=== PATIENT | female | born 1990 | race Caucasian/White ===

== ENCOUNTER → 2016-05-14 | Outpatient (CLI) | payer BC, OTHER ==
[2016-05-14 13:03] LABS: ALT/SGPT 30 U/L (12-78); AST/SGOT 12 U/L (15-37); BLOOD UREA NITROGEN 11 mg/dl (7-18); BUN/CREATININE RATIO 14.7 (10-20); CALCIUM 8.8 mg/dl (8.5-10.1); CARBON DIOXIDE 27 mmol/L (21-32); CHLORIDE 108 mmol/L (98-107); CREATININE 0.78 mg/dl (0.60-1.20); GLUCOSE 87 mg/dl (70-99); POTASSIUM 4.1 mmol/L (3.5-5.1); SODIUM 141 mmol/L (136-145)
[2016-05-14 13:11] LABS: ALB/GLOB RATIO 1.1 (0.9-2); ALKALINE PHOSPHATASE 98 U/L (45-117); CHOLESTEROL 136 mg/dl (0-200); HDL CHOLESTEROL 45 mg/dl; LDL CHOLESTEROL CALCULATED 80 mg/dl; TRIGLYCERIDES 53 mg/dl (0-150); VERY LOW DENSITY LIPOPROT CALC 11 mg/dl
[2016-05-14 13:15] LABS: BASO % 0.4 %; BASO ABS # 0.03 K/uL (0-0.2); COMPLETE YES; EOS % 4.9 %; HEMATOCRIT 42.2 % (37-47); IG% 0.2 %; LYMPH % 29.5 %; LYMPH ABS # 2.46 K/uL (1.2-3.4); MEAN CELL VOLUME 86.3 fL (80-100); MEAN CORPUSCULAR HEMOGLOBIN 29.4 pg (25-34); MEAN CORPUSCULAR HGB CONC 34.1 g/dl (32-36); MEAN PLATELET VOLUME 10.5 fL (7.4-10.4); MONO % 6.1 %; NEUT % 58.9 %; PLATELET COUNT 294 K/uL (130-400); RED BLOOD COUNT 4.89 M/uL (4.2-5.4); WHITE BLOOD COUNT 8.35 K/uL (4.8-10.8)
== END | disposition home or self-care (01) ==
LOC: C.LABBFT 10:49
PROVIDERS: ATTEND Nurse Practitioner
DX: N91.2 Amenorrhea, unspecified (principal)

== ENCOUNTER → 2016-05-17 | Outpatient (CLI) | payer OTHER ==
--- NOTE | 2016-05-17 09:20 | DIAGNOSTIC IMAGING REPORT ---
THYROID ULTRASOUND HISTORY: E07.89 Thyroid fullness COMPARISON: None. FINDINGS: Right lobe: 5.0 x 1.8 x 1.2 cm. No nodules. Left lobe: 4.9 x 1.5 x 1.4 cm. No nodules. Isthmus: 6 mm in thickness. No nodules. IMPRESSION: Normal thyroid ultrasound. Electronically signed by: Xavi Hubbard M.D. 05/17/2016 9:18 AM Dictated Date/Time: 05/17/2016 9:12 AM
== END | disposition home or self-care (01) ==
LOC: C.ULTR 08:53
PROVIDERS: ATTEND Nurse Practitioner
DX: E07.89 Other specified disorders of thyroid (principal)

== ENCOUNTER 2024-03-23 07:24 | Inpatient (IN) ==
[2024-03-23] MEDS ORDERED: LIDOCAINE 1% LOCAL 20 ML VIAL INFIL PRN (07:31)
[2024-03-23] MEDS ORDERED: OXYTOCIN 30 UNITS/NSS 30 UNITS/500 ML BAG IV PRN (07:31)
[2024-03-23] MEDS: LACTATED RINGER'S 1,000 ML IV SCH (08:00)
[2024-03-23] MEDS: PENICILLIN GK 6 MU in SODIUM CHLORIDE 0.9% 250 ML IV STA (08:30)
[2024-03-23 08:34] LABS: Hematocrit (blood only) 33.9 % (37.0-47.0); Hemoglobin 11.5 g/dl (12.0-16.0); Mean Corpuscular Hemoglobin 28.5 pg (25.0-34.0); Mean Corpuscular Hgb Conc 33.9 g/dL (32.0-36.0); Mean Corpuscular Volume 83.9 fL (80.0-100.0); Mean Platelet Volume 9.8 fL (9.4-12.4); Platelet Count 268 K/uL (130-400); RDW Coefficient of Variation 12.9 % (11.5-14.5); Red Blood Count 4.04 M/uL (4.20-5.40); White Blood Count 8.26 K/ul (4.8-10.8)
[2024-03-23] MEDS: miSOPROStoL 25 MCG TAB PV ONE (10:03)
--- NOTE | 2024-03-23 10:13 | History & Physical Report ---
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 Date GA wks Lbr Lgth wt Sex Type del Anes Place Del Prov ? Comment 04/08/19 9 Aborted-Spontaneous 08/17/20 Aborted-Spontaneous 02/26/23 6 Aborted-Spontaneous Denies hx stis Allergies Allergy/AdvReac Type Severity Reaction Status Date / Time No Known Allergies Allergy Verified 03/22/24 10:49 Home Medications Medication Instructions Recorded Confirmed Type vit no.95-ferrous 1 tab PO DAILY 12/14/23 03/23/24 History fumarate 28 mg-folic acid 800 mcg tablet () Patient History Medical History (Updated 03/12/24 @ 17:38 by Alia Ballard MD) Complete miscarriage History of chicken pox Shingles Missed Atypical squamous cells of undetermined significance (ASCUS) on Papanicolaou smear of cervix History of dysmenorrhea Surgical History S/P tonsillectomy H/O oral surgery wisdom tooth extraction S/P adenoidectomy Family History Father Obesity Type 2 diabetes mellitus Pure hypercholesterolemia Diabetes Grandmother Type 2 diabetes mellitus Mother Hypertension Pure hypercholesterolemia Grandmother (Maternal) Diabetes Grandmother (Paternal) Diabetes Denies family history of Ovarian cancer Breast cancer Colorectal cancer Social History Smoking Status: Former smoker Tobacco Type: E-cigarettes / Vaping Second Hand Exposure: No; Do You Dip or Chew Tobacco: No; Hx Alcohol Use: No Hx Substance Use: No Preferred Language: Telugu Communication Ability: Effective 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 Beliefs That Will Affect Care: None marital status: Single marital status details: Suha Link (35) [phone] Current Living Situation: Significant Other Current Living Situation Comment: Pt lives with Juan, 1 dog, 3 cats, and 1 rabbit current occupational status: employed current occupation: [employer]- Other Information That Helps Us Care for You: No Feels Safe at Home: Yes Safety Concerns: Feels Safe At This Time Assistive Devices: None Physical Exam Genitourinary: OB Exam Abdomen: + vertex and + estimated weight (6-7) Manual OB Exam: + cervical dilation fingertip, + cervical effacement 20% and + station high OB Exam Monitor Tracing: + external FHT monitor used, + external uterine monitor used (none) and + category I (150/mod/+accel/-decel) Results & Data Vital Signs (Past 12 Hours) Vital Signs Temp Pulse Resp BP 03/23/24 08:13 98.1 F 82 16 128/75 03/23/24 08:08 98.1 F 82 16 128/75 Laboratory Results OB Labs: Blood Type A Positive 10/02/23 Antibody Screen NEGATIVE 10/02/23 Hgb 12.2 g/dl (12.0-16.0) 03/18/24 Hct 37.0 % (37.0-47.0) 03/18/24 MCV 86.4 fL (80.0-100.0) 03/18/24 Plt Count 287 K/uL (130-400) 03/18/24 VZV IgG Antibody >4000.00 INDEX 03/19/17 Rubella IgG Antibody Immune (Immune) 10/02/23 RPR Nonreactive (Nonreactive) 10/02/23 Treponema pallidum Ab Negative (Negative) 01/22/24 Hep Bs Antigen Neg (Neg) 09/29/19 Hep Bs Antigen NON-REACTIVE (NON-REACTIVE) 10/02/23 Hepatitis C Ab (EIA) NON-REACTIVE (NON-REACTIVE) 10/02/23 HIV 1&2 Ab/P24 Ag 4thGn Neg (Neg) 09/29/19 HIV (1&2) Ag & Ab Conf NON-REACTIVE (NON-REACTIVE) 10/02/23 Glucose 1 Hr 50 gm 127 mg/dl (70-130) 01/22/24 OB Optional Labs: Chlamydia trachomatis RNA Not Detected (NotDetected) 08/28/23 Neisseria gonorrhoeae RNA Not Detected (NotDetected) 08/28/23 Thyroid Stimulating Hormone (TSH) 1.390 uIu/ml (0.300-4.500) 08/04/20 GBS+ urine Diagnostic Findings 02/25 EFW 2302g 61%, post plac Coding Level of Care Code None Diagnoses Mild preeclampsia O14.00 Group beta Strep positive B95.1
[2024-03-23 10:19] LABS: Albumin Globulin Ratio 1.1 (0.9-2); Bilirubin,Total 0.4 mg/dl (0.2-1.0); Calcium 8.6 mg/dl (8.6-10.3); Creatinine Clr Calc Pharmacy 233.3 ml/min; Globulin 2.8 gm/dl (2.5-4.0); Potassium 4.2 mmol/L (3.5-5.1); Total Protein 5.8 gm/dl (6.0-8.3)
[2024-03-23] MEDS: PENICILLIN GK 3 MU in DEXTROSE 5% 100 ML IV PRN (12:30)
--- NOTE | 2024-03-23 14:08 | Labor Progress Brief Note ---
Date of Service March 23, 2024 Subjective Some cramping Assessment & Plan (1) Mild preeclampsia: (2) Group beta Strep positive: Plan 33 yo at 36 wga presents for IOL for pre-eclampsia w/o severe features VSS Fetus cat 1 Labor - 35cc tirado placed, will start pit PET - labs wnl, VSS GBS+, pcn ordered epidural prn Admission and Anticipated Discharge Date Admission Date: March 23, 2024 Physical Exam Genitourinary: Manual OB Exam: + cervical dilation 1 cm, + cervical effacement 20% and + station high OB Exam Monitor Tracing: + external FHT monitor used, + external uterine monitor used (irreg) and + category I (150/mod/+accel/-decel) Results & Data Vital Signs (Past 12 Hours) Vital Signs Temp Pulse Resp BP 03/23/24 13:25 86 110/79 03/23/24 11:59 81 135/85 03/23/24 10:16 76 128/65 03/23/24 08:13 98.1 F 82 16 128/75 03/23/24 08:08 98.1 F 82 16 128/75 Coding Level of Care Code None Diagnoses Mild preeclampsia O14.00 Group beta Strep positive B95.1
[2024-03-23] MEDS: OXYTOCIN 30 UNITS/NSS 30 UNITS/500 ML BAG IV PRN (14:18)
[2024-03-23] MEDS: BUTORPHANOL TARTRATE 2 MG/ML VIAL IV PRN (19:49)
[2024-03-23] MEDS ORDERED: diphenhydrAMINE 50 MG/ML VIAL IV PRN (21:46)
[2024-03-23] MEDS ORDERED: SODIUM CHLORIDE 0.9% PF INJ 10 ML VIAL EPI PRN (21:46)
[2024-03-23] MEDS ORDERED: LIDOCAINE 2% MPF LOCAL 5 ML VIAL EPI PRN (21:46)
[2024-03-23] MEDS ORDERED: ePHEDrine sulfate 50 MG/ML AMP IV PRN (21:46)
[2024-03-23] MEDS ORDERED: NALOXONE HCL 0.4 MG/1 ML VIAL/CARP IV PRN (21:46)
[2024-03-23] MEDS ORDERED: NALBUPHINE HCL INJ 10 MG/ML AMP IV PRN (21:46)
[2024-03-23] MEDS ORDERED: BUPIVACAINE 0.25% PF 30 ML VIAL EPI PRN (21:46)
[2024-03-23] MEDS ORDERED: NALOXONE HCL 1 MG in SODIUM CHLORIDE 0.9% 1,000 ML IV PRN (21:46)
[2024-03-23] MEDS ORDERED: ROPIVACAINE 0.5% PF 5 MG/ML 20 ML VIAL EPI PRN (21:46)
[2024-03-23] MEDS ORDERED: fentaNYL citrate PF 100 MCG/2 ML VIAL EPI PRN (21:46)
--- NOTE | 2024-03-23 21:46 | Anesthesiology Consultation ---
Date of Service March 23, 2024 Assessment & Plan (1) Encounter for pre-operative examination: Chart Review Chart Review: Patient NOT seen in Pre Admission Testing and Acceptable Risk for Labor Epidural Consults Requested none History Height/Weight Height: 5 ft 9 in Weight: 152.407 kg Allergies Allergy/AdvReac Type Severity Reaction Status Date / Time No Known Allergies Allergy Verified 03/22/24 10:49 Medications Home Medications Medication Instructions Recorded Confirmed Last Taken vit no.95-ferrous 1 tab PO DAILY 12/14/23 03/23/24 Unknown fumarate 28 mg-folic acid 800 mcg tablet () Active Medications Generic Name Dose Route Start Last Admin Trade Name Freq PRN Reason Stop Dose Admin Butorphanol Tartrate 1 mg 03/23/24 19:31 03/23/24 19:49 Butorphanol Tartrate 2 Mg/Ml Vial IV 1 mg Q1H PRN Administration Pain Oxytocin 30 units in 500 mls @ 20 mls/hr 03/23/24 07:31 03/23/24 20:10 Pitocin 30 Units/Nss IV 03/25/24 07:30 1.2 units/hr .Q24H PRN 20 mls/hr Labor Induction/Augmentation Titration Protocol 1.2 UNITS/HR Penicillin G Potassium 3 mu/ 106 mls @ 100 mls/hr 03/23/24 10:31 03/23/24 20:32 Dextrose IV 04/02/24 10:30 100 mls/hr Q4H PRN Administration GBS(+) Until Delivery Lactated Ringer's 1,000 mls @ 50 mls/hr 03/23/24 12:45 03/23/24 08:00 Lr IV 03/24/24 12:44 50 mls/hr .Q20H RONNIE Administration Past Medical History Medical History Complete miscarriage History of chicken pox Shingles Missed Atypical squamous cells of undetermined significance (ASCUS) on Papanicolaou smear of cervix History of dysmenorrhea Past Family History Family History Father Obesity Type 2 diabetes mellitus Pure hypercholesterolemia Diabetes Grandmother Type 2 diabetes mellitus Mother Hypertension Pure hypercholesterolemia Grandmother (Maternal) Diabetes Grandmother (Paternal) Diabetes Denies family history of Ovarian cancer Breast cancer Colorectal cancer Past Surgical History Surgical History S/P tonsillectomy H/O oral surgery wisdom tooth extraction S/P adenoidectomy Social History Smoking Status: Former smoker tobacco type: cigarettes Do You Dip or Chew Tobacco: No Hx Alcohol Use: No Hx Substance Use: No substance use type: does not use Physical Exam Vital Signs Last Vital Signs Temp 98.1 F 03/23/24 19:05 Pulse 73 03/23/24 21:43 Resp 20 03/23/24 19:05 BP 144/65 H 03/23/24 20:24 Pulse Ox 97 03/23/24 21:43 Testing Laboratory Results 03/23/24 07:44 03/23/24 07:44 Blood Type A Positive 03/23/24 07:44 Antibody Screen NEGATIVE 03/23/24 07:44
[2024-03-23] MEDS: LIDOCAINE 2%/EPINEPHRINE 1:200,000 20 ML PF EPI STA (22:08)
[2024-03-23] MEDS: BUPIVACAINE 0.25% PF 30 ML VIAL ONE (22:08)
[2024-03-23] MEDS: fentaNYL citrate PF 100 MCG/2 ML VIAL EPI STA (22:08)
[2024-03-23] MEDS: fentANYL 2 MCG/ML BUPIVacaine 0.125%-NSS 100ML BAG EPI PRN (22:09)
--- NOTE | 2024-03-23 22:29 | Labor Progress Brief Note ---
Date of Service March 23, 2024 Subjective s/p epidural, bulb out Assessment & Plan (1) Mild preeclampsia: (2) Group beta Strep positive: Plan 33 yo at 36 wga presents for IOL for pre-eclampsia w/o severe features VSS Fetus cat 1 Labor - now s/p arom, fse and iupc placed for more accurate monitoring. Pit at 22 PET - labs wnl, VSS GBS+, pcn ordered epidural in place Admission and Anticipated Discharge Date Admission Date: March 23, 2024 Physical Exam Genitourinary: Manual OB Exam: + cervical dilation (3-4), + cervical effacement 50%, + station -2 and + amniotic fluid (arom clear) OB Exam Monitor Tracing: + scalp electrode used, + intra-uterine pressure catheter used (placed, q3-4) and + category I (150/mod/+accel/-decel) Results & Data Vital Signs (Past 12 Hours) Vital Signs Temp Pulse Resp BP Pulse Ox 03/23/24 22:23 67 99 03/23/24 22:22 75 114/56 L 03/23/24 22:19 75 126/59 L 03/23/24 22:18 79 99 03/23/24 22:13 81 97 03/23/24 22:12 79 123/67 03/23/24 22:10 82 120/63 03/23/24 22:08 97 03/23/24 22:08 75 03/23/24 22:08 78 123/65 03/23/24 22:03 72 100 03/23/24 21:58 75 98 03/23/24 21:53 84 97 03/23/24 21:48 75 96 03/23/24 21:43 73 97 03/23/24 21:38 70 100 03/23/24 21:37 76 94 03/23/24 21:33 72 96 03/23/24 21:28 92 H 98 03/23/24 21:23 71 95 03/23/24 21:18 75 96 03/23/24 20:24 79 144/65 H 03/23/24 20:08 80 172/90 H 03/23/24 19:05 98.1 F 20 03/23/24 18:59 83 151/88 H 03/23/24 18:45 78 155/93 H 11/26/24 18:29 71 152/94 H 03/23/24 17:45 77 154/80 H 03/23/24 17:29 73 138/81 03/23/24 17:14 82 138/79 03/23/24 16:59 80 133/80 03/23/24 16:44 83 148/76 H 03/23/24 16:29 73 142/77 H 03/23/24 16:13 79 138/82 03/23/24 15:58 82 134/78 03/23/24 15:43 80 133/75 03/23/24 15:28 78 133/73 03/23/24 15:16 98.2 F 16 03/23/24 15:13 80 136/73 03/23/24 14:13 78 138/76 03/23/24 13:25 86 110/79 03/23/24 11:59 81 135/85 Coding Level of Care Code None Diagnoses Mild preeclampsia O14.00 Group beta Strep positive B95.1
[2024-03-23] MEDS ORDERED: ONDANSETRON INJ 2 MG/ML 2 ML VIAL IV PRN (22:31)
[2024-03-23] MEDS: ONDANSETRON INJ 2 MG/ML 2 ML VIAL ONE (22:33)
[2024-03-23] MEDS: fentANYL 2 MCG/ML BUPIVacaine 0.125%-NSS 100ML BAG ONE (22:53)
[2024-03-23] MEDS: LIDOCAINE 2%/EPINEPHRINE 1:200,000 20 ML PF ONE (22:53)
[2024-03-23] MEDS: BUPIVACAINE 0.25% PF 30 ML VIAL EPI STA (22:53)
[2024-03-23] MEDS: fentaNYL citrate PF 100 MCG/2 ML VIAL ONE (22:53)
[2024-03-23] MEDS: SODIUM CHLORIDE 0.9% PF INJ 10 ML VIAL ONE (22:54)
[2024-03-23] MEDS: SODIUM CHLORIDE 0.9% PF INJ 10 ML VIAL EPI STA (22:54)
--- NOTE | 2024-03-24 06:17 | Labor Progress Brief Note ---
Date of Service March 24, 2024 Subjective comfortable w/ epidural Assessment & Plan (1) Mild preeclampsia: (2) Group beta Strep positive: Plan 33 yo at 36 wga presents for IOL for pre-eclampsia w/o severe features VSS Fetus cat 1 Labor - pit at 28, was adequate earlier but starting to space. Slow progress but progress still noted. Continue induction PET - labs wnl, VSS GBS+, pcn ordered epidural in place Admission and Anticipated Discharge Date Admission Date: March 23, 2024 Physical Exam 2 Genitourinary: Manual OB Exam: + cervical dilation (4-5), + cervical effacement 50% and + station -2 OB Exam Monitor Tracing: + scalp electrode used, + intra-uterine pressure catheter used (q4, was adequate but spacing a little now) and + category I (140/mod/+accel/-decel) Results & Data Vital Signs (Past 12 Hours) Vital Signs Temp Pulse Resp BP Pulse Ox 03/24/24 06:13 83 94 03/24/24 06:12 88 131/71 03/24/24 06:11 84 88 L 03/24/24 06:08 79 97 03/24/24 06:03 76 93 03/24/24 05:58 78 94 03/24/24 05:55 74 116/64 91 03/24/24 05:53 77 94 03/24/24 05:48 76 95 03/24/24 05:43 75 94 03/24/24 05:40 73 111/62 91 03/24/24 05:38 77 94 03/24/24 05:33 87 96 03/24/24 05:28 79 97 03/24/24 05:26 75 119/66 03/24/24 05:23 79 94 03/24/24 05:18 78 94 03/24/24 05:13 79 94 03/24/24 05:11 75 113/64 03/24/24 05:08 81 94 03/24/24 05:03 79 94 03/24/24 04:58 77 94 03/24/24 04:56 78 104/60 03/24/24 04:53 79 94 03/24/24 04:48 81 94 03/24/24 04:43 77 94 03/24/24 04:40 98.1 F 78 118/61 03/24/24 04:38 85 93 03/24/24 04:35 88 91 03/24/24 04:33 79 93 03/24/24 04:28 75 94 03/24/24 04:23 80 93 03/24/24 04:18 77 93 03/24/24 04:13 78 92 03/24/24 04:10 74 109/59 L 03/24/24 04:08 78 93 03/24/24 04:03 80 92 03/24/24 03:58 75 93 03/24/24 03:55 73 108/56 L 03/24/24 03:53 83 93 03/24/24 03:48 78 93 03/24/24 03:43 76 93 03/24/24 03:41 77 106/60 03/24/24 03:38 80 94 03/24/24 03:33 80 93 03/24/24 03:28 78 94 03/24/24 03:27 73 110/53 L 03/24/24 03:23 76 95 03/24/24 03:18 84 96 03/24/24 03:17 96 H 91 03/24/24 03:13 84 94 03/24/24 03:11 96 H 123/69 03/24/24 03:08 87 95 03/24/24 03:03 96 H 96 03/24/24 02:58 92 H 96 03/24/24 02:55 90 124/64 03/24/24 02:53 82 95 03/24/24 02:48 81 94 03/24/24 02:43 76 94 03/24/24 02:41 85 134/75 03/24/24 02:40 98.2 F 03/24/24 02:38 107 H 97 03/24/24 02:33 87 96 03/24/24 02:28 83 95 03/24/24 02:26 83 127/57 L 03/24/24 02:23 80 95 03/24/24 02:18 87 95 03/24/24 02:13 88 95 03/24/24 02:10 92 H 133/60 03/24/24 02:08 83 95 03/24/24 02:03 82 95 03/24/24 01:58 84 95 03/24/24 01:57 82 129/58 L 03/24/24 01:53 85 96 03/24/24 01:48 85 96 03/24/24 01:43 82 96 03/24/24 01:40 77 132/69 03/24/24 01:38 79 94 03/24/24 01:33 81 93 03/24/24 01:28 73 93 03/24/24 01:25 85 112/66 03/24/24 01:23 79 93 03/24/24 01:18 86 94 03/24/24 01:13 83 94 03/24/24 01:11 78 138/76 03/24/24 01:08 81 93 03/24/24 01:03 81 93 03/24/24 00:58 77 93 03/24/24 00:55 76 139/74 03/24/24 00:53 85 93 03/24/24 00:48 84 94 03/24/24 00:43 77 93 03/24/24 00:41 77 137/76 03/24/24 00:38 81 94 03/24/24 00:33 78 94 03/24/24 00:30 98.1 F 03/24/24 00:28 84 95 03/24/24 00:25 78 124/61 94 03/24/24 00:23 79 93 03/24/24 00:20 80 93 03/24/24 00:18 80 94 03/24/24 00:13 79 94 03/24/24 00:10 76 122/58 L 03/24/24 00:08 93 03/24/24 00:08 80 03/24/24 00:08 81 94 03/24/24 00:03 94 03/24/24 00:03 83 03/24/24 00:03 84 94 03/23/24 23:58 79 94 03/23/24 23:57 81 94 03/23/24 23:55 76 123/57 L 03/23/24 23:53 82 93 03/23/24 23:52 82 94 03/23/24 23:48 79 94 03/23/24 23:47 83 94 03/23/24 23:43 85 93 03/23/24 23:41 79 123/61 93 03/23/24 23:38 84 93 03/23/24 23:33 82 93 03/23/24 23:31 80 93 03/23/24 23:28 79 95 03/23/24 23:26 77 123/63 03/23/24 23:25 80 93 03/23/24 23:23 78 95 03/23/24 23:19 83 93 03/23/24 23:18 90 96 03/23/24 23:14 79 94 03/23/24 23:13 81 95 03/23/24 23:11 75 122/68 03/23/24 23:09 80 94 03/23/24 23:08 82 94 03/23/24 23:03 77 96 03/23/24 23:00 18 03/23/24 23:00 98.4 F 18 03/23/24 22:58 74 97 03/23/24 22:57 94 03/23/24 22:57 77 03/23/24 22:57 75 120/65 03/23/24 22:53 86 97 03/23/24 22:48 76 96 03/23/24 22:43 77 98 03/23/24 22:39 75 116/61 03/23/24 22:38 80 97 03/23/24 22:33 79 156/124 H 97 03/23/24 22:28 77 94 03/23/24 22:23 67 99 03/23/24 22:22 75 114/56 L 03/23/24 22:20 20 03/23/24 22:20 20 03/23/24 22:19 75 126/59 L 03/23/24 22:18 79 99 03/23/24 22:15 18 03/23/24 22:15 18 03/23/24 22:13 81 97 03/23/24 22:12 79 123/67 03/23/24 22:10 82 18 120/63 03/23/24 22:08 97 03/23/24 22:08 75 03/23/24 22:08 78 123/65 03/23/24 22:03 72 100 03/23/24 21:58 75 98 03/23/24 21:53 84 97 03/23/24 21:48 75 96 03/23/24 21:43 73 97 03/23/24 21:38 70 100 03/23/24 21:37 76 94 03/23/24 21:33 72 96 03/23/24 21:28 92 H 98 03/23/24 21:23 71 95 03/23/24 21:18 75 96 03/23/24 20:24 79 144/65 H 03/23/24 20:08 80 172/90 H 03/23/24 19:05 98.1 F 20 03/23/24 18:59 83 151/88 H 03/23/24 18:45 78 155/93 H 03/23/24 18:29 71 152/94 H Coding Level of Care Code None Diagnoses Mild preeclampsia O14.00 Group beta Strep positive B95.1
[2024-03-24] MEDS: ePHEDrine sulfate 50 MG/ML AMP ONE (08:18)
--- NOTE | 2024-03-24 09:31 | Labor Progress Brief Note ---
Date of Service March 24, 2024 Subjective Patient comfortable . Has been at 30mU of pit for three hours. ARom for 10 hours. Assessment & Plan (1) Mild preeclampsia: (2) Group beta Strep positive: (3) Obesity affecting , antepartum: Plan Not making any progress, contraction pattern worsening as the pitocin is increasing. Concerned. Fetus category one. Discussed plan of d/c pit for 30 min and then restarting at half again and see if can get better contractions. Could choose to proceed with c/s. Not ready to give up as have other options but expressed my concern of minimal progress. r/b/se of both discussed. Admission and Anticipated Discharge Date Admission Date: March 23, 2024 Physical Exam Physical Exam: cx--3-4/75/-2 toco--q2-4min, pit at 4, contractions are actually worsening in intensity efm--130s with mod variability, accels to 160s, no decels Results & Data Vital Signs (Past 12 Hours) Vital Signs Temp Pulse Resp BP Pulse Ox 03/24/24 09:23 82 98 03/24/24 09:18 74 96 03/24/24 09:13 76 94 03/24/24 09:11 73 125/67 03/24/24 09:08 74 94 03/24/24 09:03 75 93 03/24/24 08:58 76 94 03/24/24 08:55 79 130/76 03/24/24 08:53 77 93 03/24/24 08:48 75 94 03/24/24 08:43 75 94 03/24/24 08:41 73 124/77 03/24/24 08:38 73 94 03/24/24 08:33 85 96 03/24/24 08:28 77 94 03/24/24 08:25 74 116/69 03/24/24 08:23 83 95 03/24/24 08:18 76 95 03/24/24 08:13 82 96 03/24/24 08:10 74 125/75 03/24/24 08:08 83 97 03/24/24 08:03 79 96 03/24/24 08:01 20 03/24/24 08:01 20 03/24/24 07:58 91 H 96 03/24/24 07:56 73 123/62 03/24/24 07:53 75 94 03/24/24 07:48 88 95 03/24/24 07:43 78 96 03/24/24 07:40 76 124/59 L 03/24/24 07:38 81 96 03/24/24 07:33 86 96 03/24/24 07:28 76 94 03/24/24 07:26 80 127/58 L 91 03/24/24 07:23 86 94 03/24/24 07:18 74 95 03/24/24 07:14 36.7 C 18 03/24/24 07:13 80 96 03/24/24 07:12 74 119/69 03/24/24 07:08 75 95 03/24/24 07:03 77 94 03/24/24 06:58 77 94 03/24/24 06:55 78 126/70 03/24/24 06:53 89 95 03/24/24 06:48 79 93 03/24/24 06:43 87 96 03/24/24 06:40 86 124/73 03/24/24 06:38 75 94 03/24/24 06:33 75 96 03/24/24 06:28 76 95 03/24/24 06:25 80 03/24/24 06:25 73 115/72 88 L 03/24/24 06:23 87 96 03/24/24 06:18 83 96 03/24/24 06:13 83 94 03/24/24 06:12 88 131/71 03/24/24 06:11 84 88 L 03/24/24 06:08 79 97 03/24/24 06:03 76 93 03/24/24 05:58 78 94 03/24/24 05:55 74 116/64 91 03/24/24 05:53 77 94 03/24/24 05:48 76 95 03/24/24 05:43 75 94 03/24/24 05:40 73 111/62 91 03/24/24 05:38 77 94 03/24/24 05:33 87 96 03/24/24 05:28 79 97 03/24/24 05:26 75 119/66 03/24/24 05:23 79 94 03/24/24 05:18 78 94 03/24/24 05:13 79 94 03/24/24 05:11 75 113/64 03/24/24 05:08 81 94 03/24/24 05:03 79 94 03/24/24 04:58 77 94 03/24/24 04:56 78 104/60 03/24/24 04:53 79 94 03/24/24 04:48 81 94 03/24/24 04:43 77 94 03/24/24 04:40 36.7 C 78 118/61 03/24/24 04:38 85 93 03/24/24 04:35 88 91 03/24/24 04:33 79 93 03/24/24 04:28 75 94 03/24/24 04:23 80 93 03/24/24 04:18 77 93 03/24/24 04:13 78 92 03/24/24 04:10 74 109/59 L 03/24/24 04:08 78 93 03/24/24 04:03 80 92 03/24/24 03:58 75 93 03/24/24 03:55 73 108/56 L 03/24/24 03:53 83 93 03/24/24 03:48 78 93 03/24/24 03:43 76 93 03/24/24 03:41 77 106/60 03/24/24 03:38 80 94 03/24/24 03:33 80 93 03/24/24 03:28 78 94 03/24/24 03:27 73 110/53 L 03/24/24 03:23 76 95 03/24/24 03:18 84 96 03/24/24 03:17 96 H 91 03/24/24 03:13 84 94 03/24/24 03:11 96 H 123/69 03/24/24 03:08 87 95 03/24/24 03:03 96 H 96 03/24/24 02:58 92 H 96 03/24/24 02:55 90 124/64 03/24/24 02:53 82 95 03/24/24 02:48 81 94 03/24/24 02:43 76 94 03/24/24 02:41 85 134/75 03/24/24 02:40 36.8 C 03/24/24 02:38 107 H 97 03/24/24 02:33 87 96 03/24/24 02:28 83 95 03/24/24 02:26 83 127/57 L 03/24/24 02:23 80 95 03/24/24 02:18 87 95 03/24/24 02:13 88 95 03/24/24 02:10 92 H 133/60 03/24/24 02:08 83 95 03/24/24 02:03 82 95 03/24/24 01:58 84 95 03/24/24 01:57 82 129/58 L 03/24/24 01:53 85 96 03/24/24 01:48 85 96 03/24/24 01:43 82 96 03/24/24 01:40 77 132/69 03/24/24 01:38 79 94 03/24/24 01:33 81 93 03/24/24 01:28 73 93 03/24/24 01:25 85 112/66 03/24/24 01:23 79 93 03/24/24 01:18 86 94 03/24/24 01:13 83 94 03/24/24 01:11 78 138/76 03/24/24 01:08 81 93 03/24/24 01:03 81 93 03/24/24 00:58 77 93 03/24/24 00:55 76 139/74 03/24/24 00:53 85 93 03/24/24 00:48 84 94 03/24/24 00:43 77 93 03/24/24 00:41 77 137/76 03/24/24 00:38 81 94 03/24/24 00:33 78 94 03/24/24 00:30 36.7 C 03/24/24 00:28 84 95 03/24/24 00:25 78 124/61 94 03/24/24 00:23 79 93 03/24/24 00:20 80 93 03/24/24 00:18 80 94 03/24/24 00:13 79 94 03/24/24 00:10 76 122/58 L 03/24/24 00:08 93 03/24/24 00:08 80 03/24/24 00:08 81 94 03/24/24 00:03 94 03/24/24 00:03 83 03/24/24 00:03 84 94 03/23/24 23:58 79 94 03/23/24 23:57 81 94 03/23/24 23:55 76 123/57 L 03/23/24 23:53 82 93 03/23/24 23:52 82 94 03/23/24 23:48 79 94 03/23/24 23:47 83 94 03/23/24 23:43 85 93 03/23/24 23:41 79 123/61 93 03/23/24 23:38 84 93 03/23/24 23:33 82 93 03/23/24 23:31 80 93 03/23/24 23:28 79 95 03/23/24 23:26 77 123/63 03/23/24 23:25 80 93 03/23/24 23:23 78 95 03/23/24 23:19 83 93 03/23/24 23:18 90 96 03/23/24 23:14 79 94 03/23/24 23:13 81 95 03/23/24 23:11 75 122/68 03/23/24 23:09 80 94 03/23/24 23:08 82 94 03/23/24 23:03 77 96 03/23/24 23:00 18 03/23/24 23:00 36.9 C 18 03/23/24 22:58 74 97 03/23/24 22:57 94 03/23/24 22:57 77 03/23/24 22:57 75 120/65 03/23/24 22:53 86 97 03/23/24 22:48 76 96 03/23/24 22:43 77 98 03/23/24 22:39 75 116/61 03/23/24 22:38 80 97 03/23/24 22:33 79 156/124 H 97 03/23/24 22:28 77 94 03/23/24 22:23 67 99 03/23/24 22:22 75 114/56 L 03/23/24 22:20 20 03/23/24 22:20 20 03/23/24 22:19 75 126/59 L 03/23/24 22:18 79 99 03/23/24 22:15 18 03/23/24 22:15 18 03/23/24 22:13 81 97 03/23/24 22:12 79 123/67 03/23/24 22:10 82 18 120/63 03/23/24 22:08 97 03/23/24 22:08 75 03/23/24 22:08 78 123/65 03/23/24 22:03 72 100 03/23/24 21:58 75 98 03/23/24 21:53 84 97 03/23/24 21:48 75 96 03/23/24 21:43 73 97 03/23/24 21:38 70 100 03/23/24 21:37 76 94 03/23/24 21:33 72 96 Coding Level of Care Code None Diagnoses Mild preeclampsia O14.00 Group beta Strep positive B95.1 Obesity affecting , antepartum O99.210
--- NOTE | 2024-03-24 10:07 | Communication Note ---
Date of Service: March 24, 2024 After continued discussion, patient no longer desires to proceed with labor and desires to proceed with c/s. The risks of surgery were discussed with the patient including the risks of anesthesia, bleeding requiring transfusion, infection, poor wound healing, urinary retention, damage to surrounding structures including bowels, bladder, vessels, nerves and ureters that may require further surgery, hospitalization or intervention. The other risks of any surgery were discussed including heart attack, blood clots, stroke or . Discussed risk of injury. Consent reviewed and signed.
[2024-03-24] MEDS ORDERED: LACTATED RINGER'S 1,000 ML IV SCH ×3 (10:15→12:00)
[2024-03-24] MEDS ORDERED: ONDANSETRON INJ 2 MG/ML 2 ML VIAL ONE (10:25)
[2024-03-24] MEDS ORDERED: DEXAMETHASONE SOD INJ 4 MG/ML VIAL ONE (10:25)
[2024-03-24] MEDS ORDERED: PHENYLEPHRINE HCL 25 MG/250 ML NSS IV ONE (10:25)
[2024-03-24] MEDS ORDERED: LIDOCAINE 2%/EPINEPHRINE 1:200,000 20 ML PF ONE (10:25)
[2024-03-24] MEDS ORDERED: ePHEDrine sulfate 50 MG/5 ML SYR ONE (10:25)
[2024-03-24] MEDS ORDERED: MoRPHine SULFATE PF 1 MG/ML 10 ML AMP/VIAL ONE (10:25)
[2024-03-24] MEDS: ceFAZolin 3000MG 3,000 MG/72.5 ML BAG IV SCH (10:30)
[2024-03-24] MEDS: AZITHROMYCIN 500 MG in SODIUM CHLORIDE 0.9% 250 ML IV SCH (10:43)
[2024-03-24] MEDS: CITRIC ACID/SODIUM CITRATE 15 ML UDC PO SCH (10:44)
[2024-03-24] MEDS ORDERED: CARBOPROST TROMETHAMINE 250 MCG/ML AMPUL ONE (11:15)
[2024-03-24] MEDS ORDERED: MIDAZOLAM HCL 1 MG/ML 2ML VIAL ONE (11:26)
[2024-03-24] MEDS ORDERED: ePHEDrine sulfate 50 MG/ML AMP IV PRN (11:27)
[2024-03-24] MEDS ORDERED: NALOXONE HCL 1 MG in SODIUM CHLORIDE 0.9% 1,000 ML IV PRN (11:27)
[2024-03-24] MEDS ORDERED: HYDROmorphone INJ 0.5 MG/0.5 ML SYR IV PRN (11:27)
[2024-03-24] MEDS ORDERED: diphenhydrAMINE 50 MG/ML VIAL IV PRN (11:27)
[2024-03-24] MEDS ORDERED: oxyCODONE HCL IR 5 MG TAB (IMMEDIATE RELEASE) PO PRN (11:27)
[2024-03-24] MEDS ORDERED: NALOXONE HCL 0.08 MG in SYRINGE 1.8 ML IV PRN (11:27)
[2024-03-24] MEDS ORDERED: PROMETHAZINE 6.25 MG/50.25 ML BAG IV PRN (11:27)
[2024-03-24] MEDS ORDERED: NALOXONE HCL 0.4 MG/1 ML VIAL/CARP IV PRN (11:27)
[2024-03-24] MEDS ORDERED: MoRPHine SULFATE PF 1 MG/ML 10 ML AMP/VIAL EPI ONE (11:27)
[2024-03-24] MEDS ORDERED: ONDANSETRON INJ 2 MG/ML 2 ML VIAL IV PRN ×2 (11:27→11:49)
[2024-03-24] MEDS ORDERED: NALBUPHINE HCL INJ 10 MG/ML AMP IV PRN (11:27)
[2024-03-24] MEDS ORDERED: NO NARCOTICS OR SEDATIVES SCH (11:30)
[2024-03-24] MEDS ORDERED: DC INTRASPINAL MORPHINE SCH (11:30)
[2024-03-24] MEDS ORDERED: SENNA 8.6 MG TAB PO PRN (11:49)
[2024-03-24] MEDS ORDERED: HYDROCORTISONE ACETATE 25 MG SUPP PR PRN (11:49)
[2024-03-24] MEDS ORDERED: CALCIUM CARBONATE 500 MG CHEWABLE TAB PO PRN (11:49)
[2024-03-24] MEDS ORDERED: MAGNESIUM HYDROXIDE SUSP 30 ML UDC PO PRN (11:49)
[2024-03-24] MEDS ORDERED: BENZOCAINE 20% SPRY 85 APPLN/85 GM CAN EXT PRN (11:49)
[2024-03-24] MEDS: OXYTOCIN 20 UNITS/LR 1,002 ML IV SCH (11:55)
--- NOTE | 2024-03-24 12:03 | Operative Report ---
PG Post Operative Report Pre & Post Diagnosis Operation Date: 03/24/24 11:00 Pre-Op Diagnosis: IUP at 37.1 weeks, PIH with severe features, failure to induce. Post-Op Diagnosis: IUP at 37.1 weeks, PIH with severe features, failure to induce. I identified the patient and participated in the time-out.: Yes Procedure Operation Date: 03/24/24 11:00 Actual Procedures p primary low transverse Section in LD. Delivery of Live male child at 1111. (Bilateral) - Courtney Parr MD, FACOG Surgeon Courtney Parr MD, FACOG Advertising Assistant Manager Mayra Villanueva MD, Marilu Figueroa, PGY 1 Estimated Blood Loss 677 (QBL) Findings Consistent with Post-Op Diagnosis viable male infant , transverse postion, apgars 7/9 normal appearing uterus tubes and ovaries Fluids ivf--900cc uop--550cc from insertion of the tirado Specimens none Drains tirado Anesthesia Type Spinal Complications none Disposition Accompanied Patient To Recovery: Yes Disposition: L&D Indications [id number] with iol for pet without severe features. Unfavorable cervix. Got cytotec then tirado. Had arom with iupc/fse placed. WAs ruptured for 12 hours and had max pitocin of 30 and made no change. discussed other options for continued labor vs. moving forward with c/s and patient chooses the latter. Description of Procedure The patient was taken to the operating room where she was identified verbally and by bracelet. She was placed in the supine position with a leftward tilt. A Tirado catheter had been placed sterilely. The epidural was dosed by epidural. the patient was prepped and draped in a normal standard fashion. the anesthetic was tested and found to be adequate. A time-out was held, identifying correct patient, procedure, positioning and preoperative antibiotics. There were no concerns. A Pfannenstiel skin incision was made with a knife and taken down to the underlying layer of fascia with the knife and Bovie electrocautery. Bleeding was attended to with the Bovie. The fascia was incised in the midline with the knife and taken out laterally with scissors. The superior edge of the fascial incision was grasped, elevated and the underlying layer of rectus muscle was taken off bluntly and with scissors. In a similar fashion, the inferior edge of the fascial incision was grasped, elevated and the underlying layer of rectus muscle was taken off bluntly and with scissors. The muscles were bluntly in the midline. The peritoneum was entered bluntly. The incision was then stretched. The bladder blade was placed. The vesicouterine peritoneum was identified, entered with scissors and taken out laterally with scissors. The bladder flap was created digitally A hysterotomy incision was scored with a knife and the incision was stretched superiorly and inferiorly with the tram operator's fingers. The operators hand was placed into the incision and attempts to deliver the head with fundal pressure were unsuccessful. A vacuum was called for and placed. the suction initiated to the green zone. the head was then delivered with fundal pressure. The vacuum was immedately released. Loose nuchal cord. The nose and mouth were bulb suctioned. the rest of the was then delivered without difficulty. The nose and mouth were again bulb suctioned. The cord was clamped and cut and the was then handed off to the awaiting informatics coordinator for drying and attention. Cord blood and segment were obtained. The placenta was Manually extracted. The uterus was exteriorized and cleared of all clot and debris with moistened laparotomy sponges. The hysterotomy incision was repaired in two layers, the first in a running locked layer, the second in an imbricating layer. Hemostasis required 3 addtional tissues. Posterior cul-de-sac was irrigated and cleared of all clot and debris. The hysterotomy incision was again inspected and found to be hemostatic. the uterus was reinteriorized. Hysterotomy incision was again inspected and found to be hemostatic. The fascia was then reapproximated with 0 Vicryl starting at the edges and meeting in the midline. The subcuticular tissues were copiously irrigated and bleeding was attended to with cautery. the Subcuticular tissue was reapproximated with 2-0 plain gut. The skin was then closed with 4-0 Vicryl in a subcuticular fashion. A JAVON dressing was then placed. All sponge, lap and needle counts correct x 2. The patient taken to the recovery room in stable condition. I attest to the content of the Intraoperative Record and any orders documented therein. Any exceptions are noted below.
[2024-03-24] MEDS: CARBOPROST TROMETHAMINE 250 MCG/ML AMPUL IM ONE (12:07)
--- NOTE | 2024-03-24 12:09 | Anesthesiology Progress Note ---
Date of Service March 24, 2024 Anesthesia Post Procedure Vital Signs Vital Signs: Temp Pulse Resp BP Pulse Ox 03/24/24 12:06 100 H 136/99 03/24/24 12:03 84 96 03/24/24 11:58 97 H 96 03/24/24 11:56 93 03/24/24 11:56 89 03/24/24 11:56 88 130/79 03/24/24 11:53 89 99 03/24/24 10:40 80 121/75 03/24/24 10:38 81 95 03/24/24 10:33 88 96 03/24/24 10:28 87 97 03/24/24 10:26 83 148/76 H 03/24/24 10:23 85 96 03/24/24 10:18 81 97 03/24/24 10:13 90 97 03/24/24 10:12 82 126/72 03/24/24 10:08 92 H 97 03/24/24 10:03 87 97 03/24/24 09:58 79 98 03/24/24 09:55 93 H 138/85 03/24/24 09:53 85 98 03/24/24 09:48 91 H 97 03/24/24 09:43 83 96 03/24/24 09:40 83 139/83 03/24/24 09:38 83 96 03/24/24 09:33 84 97 03/24/24 09:29 37.0 C 03/24/24 09:28 80 97 03/24/24 09:23 82 98 03/24/24 09:18 74 96 03/24/24 09:15 18 03/24/24 09:15 18 03/24/24 09:13 76 94 03/24/24 09:11 73 125/67 03/24/24 09:08 74 94 03/24/24 09:03 75 93 03/24/24 08:58 76 94 03/24/24 08:55 79 130/76 03/24/24 08:53 77 93 03/24/24 08:48 75 94 03/24/24 08:43 75 94 03/24/24 08:41 73 124/77 03/24/24 08:38 73 94 03/24/24 08:33 85 96 03/24/24 08:28 77 94 03/24/24 08:25 74 116/69 11/27/24 08:23 83 95 03/24/24 08:18 76 95 03/24/24 08:13 82 96 03/24/24 08:10 74 125/75 03/24/24 08:08 83 97 03/24/24 08:03 79 96 03/24/24 08:01 20 03/24/24 08:01 20 03/24/24 07:58 91 H 96 03/24/24 07:56 73 123/62 03/24/24 07:53 75 94 03/24/24 07:48 88 95 03/24/24 07:43 78 96 03/24/24 07:40 76 124/59 L 03/24/24 07:38 81 96 03/24/24 07:33 86 96 03/24/24 07:28 76 94 03/24/24 07:26 80 127/58 L 91 03/24/24 07:23 86 94 03/24/24 07:18 74 95 03/24/24 07:14 36.7 C 18 03/24/24 07:13 80 96 03/24/24 07:12 74 119/69 03/24/24 07:08 75 95 03/24/24 07:03 77 94 03/24/24 06:58 77 94 03/24/24 06:55 78 126/70 03/24/24 06:53 89 95 03/24/24 06:48 79 93 03/24/24 06:43 87 96 03/24/24 06:40 86 124/73 03/24/24 06:38 75 94 03/24/24 06:33 75 96 03/24/24 06:28 76 95 03/24/24 06:25 80 03/24/24 06:25 73 115/72 88 L 03/24/24 06:23 87 96 03/24/24 06:18 83 96 03/24/24 06:13 83 94 03/24/24 06:12 88 131/71 03/24/24 06:11 84 88 L 03/24/24 06:08 79 97 03/24/24 06:03 76 93 03/24/24 05:58 78 94 03/24/24 05:55 74 116/64 91 03/24/24 05:53 77 94 03/24/24 05:48 76 95 03/24/24 05:43 75 94 03/24/24 05:40 73 111/62 91 03/24/24 05:38 77 94 03/24/24 05:33 87 96 03/24/24 05:28 79 97 03/24/24 05:26 75 119/66 03/24/24 05:23 79 94 03/24/24 05:18 78 94 03/24/24 05:13 79 94 03/24/24 05:11 75 113/64 03/24/24 05:08 81 94 03/24/24 05:03 79 94 03/24/24 04:58 77 94 03/24/24 04:56 78 104/60 03/24/24 04:53 79 94 03/24/24 04:48 81 94 03/24/24 04:43 77 94 03/24/24 04:40 36.7 C 78 118/61 03/24/24 04:38 85 93 03/24/24 04:35 88 91 03/24/24 04:33 79 93 03/24/24 04:28 75 94 03/24/24 04:23 80 93 03/24/24 04:18 77 93 03/24/24 04:13 78 92 03/24/24 04:10 74 109/59 L 03/24/24 04:08 78 93 03/24/24 04:03 80 92 03/24/24 03:58 75 93 03/24/24 03:55 73 108/56 L 03/24/24 03:53 83 93 03/24/24 03:48 78 93 03/24/24 03:43 76 93 03/24/24 03:41 77 106/60 03/24/24 03:38 80 94 03/24/24 03:33 80 93 03/24/24 03:28 78 94 03/24/24 03:27 73 110/53 L 03/24/24 03:23 76 95 03/24/24 03:18 84 96 03/24/24 03:17 96 H 91 03/24/24 03:13 84 94 03/24/24 03:11 96 H 123/69 03/24/24 03:08 87 95 03/24/24 03:03 96 H 96 03/24/24 02:58 92 H 96 03/24/24 02:55 90 124/64 03/24/24 02:53 82 95 03/24/24 02:48 81 94 03/24/24 02:43 76 94 03/24/24 02:41 85 134/75 03/24/24 02:40 36.8 C 03/24/24 02:38 107 H 97 03/24/24 02:33 87 96 03/24/24 02:28 83 95 03/24/24 02:26 83 127/57 L 03/24/24 02:23 80 95 03/24/24 02:18 87 95 03/24/24 02:13 88 95 03/24/24 02:10 92 H 133/60 03/24/24 02:08 83 95 03/24/24 02:03 82 95 03/24/24 01:58 84 95 03/24/24 01:57 82 129/58 L 03/24/24 01:53 85 96 03/24/24 01:48 85 96 03/24/24 01:43 82 96 03/24/24 01:40 77 132/69 03/24/24 01:38 79 94 03/24/24 01:33 81 93 03/24/24 01:28 73 93 03/24/24 01:25 85 112/66 03/24/24 01:23 79 93 03/24/24 01:18 86 94 03/24/24 01:13 83 94 03/24/24 01:11 78 138/76 03/24/24 01:08 81 93 03/24/24 01:03 81 93 03/24/24 00:58 77 93 03/24/24 00:55 76 139/74 03/24/24 00:53 85 93 03/24/24 00:48 84 94 03/24/24 00:43 77 93 03/24/24 00:41 77 137/76 03/24/24 00:38 81 94 03/24/24 00:33 78 94 03/24/24 00:30 36.7 C 03/24/24 00:28 84 95 03/24/24 00:25 78 124/61 94 03/24/24 00:23 79 93 03/24/24 00:20 80 93 03/24/24 00:18 80 94 03/24/24 00:13 79 94 03/24/24 00:10 76 122/58 L 03/24/24 00:08 93 03/24/24 00:08 80 03/24/24 00:08 81 94 03/24/24 00:03 94 03/24/24 00:03 83 03/24/24 00:03 84 94 03/23/24 23:58 79 94 03/23/24 23:57 81 94 03/23/24 23:55 76 123/57 L 03/23/24 23:53 82 93 03/23/24 23:52 82 94 03/23/24 23:48 79 94 03/23/24 23:47 83 94 03/23/24 23:43 85 93 03/23/24 23:41 79 123/61 93 03/23/24 23:38 84 93 03/23/24 23:33 82 93 03/23/24 23:31 80 93 03/23/24 23:28 79 95 03/23/24 23:26 77 123/63 03/23/24 23:25 80 93 03/23/24 23:23 78 95 03/23/24 23:19 83 93 03/23/24 23:18 90 96 03/23/24 23:14 79 94 03/23/24 23:13 81 95 03/23/24 23:11 75 122/68 03/23/24 23:09 80 94 03/23/24 23:08 82 94 03/23/24 23:03 77 96 03/23/24 23:00 18 03/23/24 23:00 36.9 C 18 03/23/24 22:58 74 97 03/23/24 22:57 94 03/23/24 22:57 77 03/23/24 22:57 75 120/65 03/23/24 22:53 86 97 03/23/24 22:48 76 96 03/23/24 22:43 77 98 03/23/24 22:39 75 116/61 03/23/24 22:38 80 97 03/23/24 22:33 79 156/124 H 97 03/23/24 22:28 77 94 03/23/24 22:23 67 99 03/23/24 22:22 75 114/56 L 03/23/24 22:20 20 03/23/24 22:20 20 03/23/24 22:19 75 126/59 L 03/23/24 22:18 79 99 03/23/24 22:15 18 03/23/24 22:15 18 03/23/24 22:13 81 97 03/23/24 22:12 79 123/67 03/23/24 22:10 82 18 120/63 03/23/24 22:08 97 03/23/24 22:08 75 03/23/24 22:08 78 123/65 03/23/24 22:03 72 100 03/23/24 21:58 75 98 03/23/24 21:53 84 97 03/23/24 21:48 75 96 03/23/24 21:43 73 97 03/23/24 21:38 70 100 03/23/24 21:37 76 94 03/23/24 21:33 72 96 03/23/24 21:28 92 H 98 03/23/24 21:23 71 95 03/23/24 21:18 75 96 03/23/24 20:24 79 144/65 H 03/23/24 20:08 80 172/90 H 03/23/24 19:05 36.7 C 20 03/23/24 18:59 83 151/88 H 03/23/24 18:45 78 155/93 H 03/23/24 18:29 71 152/94 H 03/23/24 17:45 77 154/80 H 03/23/24 17:29 73 138/81 03/23/24 17:14 82 138/79 03/23/24 16:59 80 133/80 03/23/24 16:44 83 148/76 H 03/23/24 16:29 73 142/77 H 03/23/24 16:13 79 138/82 03/23/24 15:58 82 134/78 03/23/24 15:43 80 133/75 03/23/24 15:28 78 133/73 03/23/24 15:16 36.8 C 16 03/23/24 15:13 80 136/73 03/23/24 14:13 78 138/76 03/23/24 13:25 86 110/79 Pain Intensity Lower Abdomen: Pain Intensity: 2 Transfer of Care Handoff Completed per policy Notes Mental Status: alert / awake / arousable Patient Amnestic to Procedure: No Nausea / Vomiting: adequately controlled Pain: adequately controlled Airway Patency, RR, SpO2: stable & adequate BP & HR: stable & adequate Hydration State: stable & adequate Neuraxial Anesthesia: was administered and sensory block is resolving Anesthetic Complications: no major complications apparent and Pt Satisfied with anesthetic care
--- NOTE | 2024-03-24 12:10 | Anesthesia Procedure Note ---
Date of Service March 24, 2024 Anesthesia Post Epidural Note Vital Signs Vital Signs: Temp Pulse Resp BP Pulse Ox 37.0 C 100 H 18 136/99 96 03/24/24 09:29 03/24/24 12:06 03/24/24 09:15 03/24/24 12:06 03/24/24 12:03 Pain Intensity Lower Abdomen: Pain Intensity: 2 Notes Mental Status: alert / awake / arousable and participated in evaluation Patient Amnestic to Procedure: No Nausea / Vomiting: adequately controlled Pain: adequately controlled Airway Patency, RR, SpO2: stable & adequate BP & HR: stable & adequate Hydration State: stable & adequate Neuraxial Anesthesia: was administered and sensory block is resolving Anesthetic Complications: no major complications apparent and Pt Satisfied with anesthetic care Epidural: Removed without complications and With tip intact
[2024-03-24] MEDS: ACETAMINOPHEN 500 MG TAB PO SCH (12:17)
[2024-03-24] MEDS: KETOROLAC 30 MG/ML VIAL IV SCH (12:17)
[2024-03-24] MEDS: CITRIC ACID/SODIUM CITRATE 15 ML UDC ONE (13:17)
[2024-03-24] MEDS ORDERED: SODIUM CHLORIDE 0.9% 50 ML IV PRN (16:05)
[2024-03-24] MEDS ORDERED: SODIUM CHLORIDE 0.9% 100 ML IV PRN (16:05)
[2024-03-24] MEDS: DIPHTHER/TETAN/PERTUS Vaccine (Tdap, Adol/Adult) 0.5mL IM ONE (16:21)
[2024-03-24] MEDS: SIMETHICONE 80 MG CHEW PO SCH (16:22)
[2024-03-24] MEDS: ACETAMINOPHEN 325 MG TAB PO SCH (18:08)
[2024-03-24] MEDS: DOCUSATE SODIUM 100 MG CAP PO SCH (20:30)
[2024-03-25] MEDS ORDERED: diphenhydrAMINE Capsule 25 MG CAP PO PRN (05:28)
[2024-03-25] MEDS ORDERED: oxyCODONE HCL IR 5 MG TAB (IMMEDIATE RELEASE) PO PRN (05:28)
[2024-03-25] MEDS ORDERED: HYDROmorphone INJ 0.5 MG/0.5 ML SYR IV PRN (05:28)
[2024-03-25] MEDS ORDERED: PROMETHAZINE 12.5 MG/50.5 ML BAG IV PRN (05:28)
[2024-03-25] MEDS ORDERED: diphenhydrAMINE 50 MG/ML VIAL IV PRN (05:28)
--- NOTE | 2024-03-25 05:55 | Obstetrical Progress Note ---
Date of Service March 25, 2024 Assessment & Plan (1) Mild preeclampsia: (2) Group beta Strep positive: (3) Obesity affecting , antepartum: (4) Encounter for care and examination after delivery: Plan Encourage ambulation Encourage breast feeding Pain meds as needed Monitor BP Anticipate DC on 03/26/24 Admission and Anticipated Discharge Date Admission Date: March 23, 2024 Supervising Physician Co-Signing Physician Notes Resident Physician Supervision Note: I interviewed and examined the patient. Discussed with Dr. Figueroa and agree with findings and plan as documented in the note. Any exceptions or clarifications are listed here: Doing well pod 1. JAVON intact and dry. BPs are controlled. Meeting milestones. Continued care. Documented By: Courtney Parr MD, FACOG Subjective Pt is 33 yo post-op day 1 s/p CS at 39w2d. complicated by Pre- eclampsia without severe features, obesity, arrest of labor and GBS+ Ambulation:In room Voiding:voiding normally Passing gas: yes BM: no Diet tolerance:regular diet Lochia:bloody, no clots Feeding type: breast Current pain level: 2-3 /10 improved with tramadol Resting comfortably this morning in NAD. Denies SAWANT, CP, SOB, N/V/D, LE pain/swelling. Review of Systems Review of Systems: As per HPI Physical Exam Constitutional: WD/WN, vitals as above Respiratory: normal respiratory effort, lungs clear to auscultation Gastrointestinal (Abdomen): normal bowel sounds, soft, nontender, no hepatosplenomegaly Uterine fundus firm and at 1 cm above level of umbilicus CS incision covered by JAVON bandage. Clean and dry. Neurologic: PERRL, EOMI, accommodation nl, no face palsy, no dysarthria Moving all 4 extremities on command Psychiatric: A+Ox3, euthymic affect Results & Data Vital Signs (Past 12 Hours) Vital Signs Temp Pulse Resp BP Pulse Ox O2 Del Method 03/25/24 05:15 16 94 03/25/24 04:12 16 96 03/25/24 03:36 36.7 C 89 18 135/85 96 Room Air 03/25/24 03:30 16 93 03/25/24 02:17 16 93 03/25/24 01:04 16 93 03/25/24 00:00 Room Air 03/25/24 00:00 16 96 03/24/24 23:00 18 92 03/24/24 22:52 36.9 C 78 18 138/88 99 Room Air 03/24/24 22:00 18 94 03/24/24 21:00 18 95 03/24/24 20:00 18 97 03/24/24 20:00 Room Air 03/24/24 19:00 16 96 03/24/24 18:53 36.7 C 18 118/75 96 Room Air 03/24/24 18:00 18 96 Resident Activity Tracking Resident Involvement: Resident Care Provided Care Provided: Adult Hospital Medicine
[2024-03-25 06:44] LABS: Basophils # (auto) 0.03 K/uL (0.00-0.20); Basophils % (auto) 0.3 %; Eosinophils # (auto) 0.03 K/uL (0.00-0.50); Eosinophils % (auto) 0.3 %; Hematocrit (blood only) 30.7 % (37.0-47.0); Hemoglobin 10.1 g/dl (12.0-16.0); Immature Granulocytes # (auto) 0.08 K/uL (0.01-0.20); Immature Granulocytes % (auto) 0.8 %; Lymphocytes # (auto) 2.08 K/uL (1.20-3.40); Lymphocytes % (auto) 21.3 %; Mean Corpuscular Hemoglobin 28.1 pg (25.0-34.0); Mean Corpuscular Hgb Conc 32.9 g/dL (32.0-36.0); Mean Corpuscular Volume 85.3 fL (80.0-100.0); Mean Platelet Volume 9.9 fL (9.4-12.4); Monocytes # (auto) 0.74 K/uL (0.11-0.59); Monocytes % (auto) 7.6 %; Neutrophils # (auto) 6.79 K/uL (1.40-6.50); Neutrophils % (auto) 69.7 %; Platelet Count 231 K/uL (130-400); RDW Standard Deviation 40.1 fL (36.4-46.3); White Blood Count 9.75 K/ul (4.8-10.8)
[2024-03-25] MEDS: FERROUS SULFATE 325 MG TAB PO SCH (08:34)
[2024-03-25] MEDS: PRENATAL VITAMIN 1 TAB PO SCH (08:34)
[2024-03-25] MEDS ORDERED: KETOROLAC 30 MG/ML VIAL IV PRN (11:49)
[2024-03-25] MEDS: IBUPROFEN 600 MG TAB PO SCH (12:30)
[2024-03-25] MEDS: bisacodyL 5 MG TABEC PO SCH (19:48)
--- NOTE | 2024-03-26 05:41 | Obstetrical Progress Note ---
Date of Service March 26, 2024 Assessment & Plan (1) Mild preeclampsia: (2) Group beta Strep positive: (3) Obesity affecting , antepartum: (4) Encounter for care and examination after delivery: Plan Encourage ambulation Pain meds as needed Monitor BP Discharge today Pt to follow up in office on 03/31/24 for dressing removal and BP check Admission and Anticipated Discharge Date Admission Date: March 23, 2024 Supervising Physician Co-Signing Physician Notes Resident Physician Supervision Note: I interviewed and examined the patient. Discussed with Dr. Figueroa and agree with findings and plan as documented in the note. Any exceptions or clarifications are listed here: [None] Documented By: Debi Torres MD, FACOG Subjective Pt is 33 yo post-op day 2 s/p CS at 39w2d. complicated by Pre- eclampsia without severe features, obesity, arrest of labor and GBS+ Ambulation:In and out room Voiding:voiding normally Passing gas: yes BM: yes Diet tolerance:regular diet Lochia:msall amount bloody, no clots Feeding type: breast Current pain level: 0-3 /10 improved with tylenol and motrin Resting comfortably this morning in NAD. Denies SAWANT, CP, SOB, N/V/D, LE pain/swelling. Review of Systems Review of Systems: As per HPI Physical Exam Constitutional: WD/WN, vitals as above Respiratory: normal respiratory effort, lungs clear to auscultation Cardiovascular: RRR, no murmur, no edema Extremities: + edema (trace at bilateral ankles) Gastrointestinal (Abdomen): normal bowel sounds, soft, nontender, no hepatosplenomegaly Fundus is at 1 cm below umbilicus Skin: Incision covered by JAVON bandage, clean and dry. Neurologic: PERRL, EOMI, accommodation nl, no face palsy, no dysarthria Psychiatric: A+Ox3, euthymic affect Resident Activity Tracking Resident Involvement: Resident Care Provided Care Provided: Adult Hospital Medicine (1) Mild preeclampsia Trimester: third trimester Qualified Code(s): O14.03 - Mild to moderate pre- eclampsia, third trimester (3) Obesity affecting , antepartum Obesity type affecting : unspecified obesity Qualified Code(s): O99.210 - Obesity complicating , unspecified trimester
[2024-03-26 07:42] LABS: Hematocrit (blood only) 31.6 % (37.0-47.0); Hemoglobin 10.4 g/dl (12.0-16.0)
[2024-03-26 09:14] VITALS: BP 135/86; PULSE 88; RESP 18; TEMP 97.5; O2SAT 97
[2024-03-26] MEDS ORDERED: bisacodyL 10 MG SUPP PR PRN (11:49)
[2024-03-26] MEDS ORDERED: IBUPROFEN 600 MG TAB PO PRN (11:49)
[2024-03-26] MEDS ORDERED: ACETAMINOPHEN 325 MG TAB PO PRN (17:49)
--- NOTE | 2024-03-29 11:45 | Discharge Summary ---
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 Date GA wks Lbr Lgth wt Sex Type del Anes Place Del Prov ? Comment 04/08/19 9 Aborted-Spontaneous 08/17/20 Aborted-Spontaneous 02/26/23 6 Aborted-Spontaneous Denies hx stis Discharge Data Consultations 03/23/24 07:31 Consult Anesthesiology Stat Procedures Performed Operation Date: 03/24/24 11:00 Actual Procedures p Section in LD. Delivery of Live male child at 1111. (Bilateral) - Courtney Parr MD, [facility] Course (1) Status post primary low transverse section: (2) Mild preeclampsia: (3) Obesity affecting , antepartum: Plan Patient was admitted for IOL for preeclampsia without severe features. Her cervix was closed. She received cytotec for cervical ripening and then eventually able to place Demarco balloon. Demarco fell out and arom at 11pm. Despite large doses of pitocin, could not get into an adequate labor pattern or get past 4cm dilated. After discussion of options, patient desired to proceed with c/s. She underwent a primarly ltcs without complications to deliver a viable male child in transverse presentation, QBL--677cc. The patient's postop course was uncomplicated--tolerated regular diet, voided after removal of Demarco, ambulated and had pain controlled on oral pain meds. Had a JAVON drain placed. d/c home on day 2. Discharge h/h 10.4/31.6. INstructions given. Will return in 1 week for removal of JAVON dressing and in 6 weeks for postop check. Coding Level of Care Code None Diagnoses Status post primary low transverse section Z98.891 Mild pre-eclampsia in third trimester O14.03 Trimester: third trimester Obesity affecting , antepartum, unspecified obesity type O99.210 Obesity type affecting : unspecified obesity
== END 2024-03-26 10:54 | disposition home or self-care (01) | DRG 787 ==
LOC: 4S1 07:24 → 4E2 03-24 15:06
DX: E66.9 Obesity, unspecified; O69.81X0 Labor and delivery complicated by cord around neck, without compression, not applicable or unspecified; O61.8 Other failed induction of labor; Z3A.37 37 weeks gestation of pregnancy; Z87.891 Personal history of nicotine dependence; B95.1 Streptococcus, group B, as the cause of diseases classified elsewhere; Z37.0 Single live birth; O98.82 Other maternal infectious and parasitic diseases complicating childbirth; O99.214 Obesity complicating childbirth; O14.03 Mild to moderate pre-eclampsia, third trimester